=== PATIENT | female | born 1995 | race Caucasian/White ===

== ENCOUNTER 2019-07-19 10:46 | Emergency (ER) | payer OTHER ==
[~2019-07-19] VITALS: Ht 167.6 cm; Wt 86.2 kg
[2019-07-19] MEDS ORDERED: AMPHETAMINE SAL15 MG (10:53)
[2019-07-19] MEDS ORDERED: ZITHROMAX500 MG PO (15:09)
[2019-07-19] MEDS ORDERED: DICLOFENAC SODI50 MG PO (15:09)
[2019-07-19] MEDS ORDERED: MEDROLPACK PO (15:14)
== END 2019-07-19 15:20 | disposition home or self-care (01) ==
LOC: ER 10:46
DX: J35.01 Chronic tonsillitis (principal); J31.2 Chronic pharyngitis

== ENCOUNTER 2019-09-26 08:43 | Emergency (ER) | payer OTHER ==
[~2019-09-26] VITALS: Ht 167.6 cm; Wt 81.6 kg
[~2019-09-26 08:43] MED LIST: AMPHETAMINE SAL15 MG; DICLOFENAC SODI50 MG PO; MEDROLPACK PO; ZITHROMAX500 MG PO
[2019-09-26] MEDS ORDERED: MOTRIN IB200 M1 (09:06)
== END 2019-09-26 14:02 | disposition home or self-care (01) ==
LOC: ER 08:43
DX: G43.909 Migraine, unspecified, not intractable, without status migrainosus (principal)